=== PATIENT | female | born 1960 | race Caucasian/White ===

== ENCOUNTER 2016-12-17 17:12 | Emergency (ER) | payer OTHER ==
[~2016-12-17] VITALS: Ht 162.6 cm; Wt 74.0 kg
[~2016-12-17 17:12] MED LIST: DICL25 PO; HYDR200T42 PO; OMEP20TA PO; PRED-1 PO; VITA500S3 SL; ZOFR4TAB3 SL
[2016-12-17 17:23] VITALS: BP 138/81; PULSE 77; RESP 16; TEMP 98.2; O2SAT 99
[2016-12-17] MEDS ORDERED: SODIUM CHLOR 0.9% 1000 ML INJ 1,000 ML IV ONE (18:00)
[2016-12-17] MEDS ORDERED: ONDANSETRON HCL 4 MG/2 ML VIAL IVP ONE (18:00)
--- NOTE | 2016-12-17 18:01 | PD ---
HPI Chief Complaint: GI Complaint Time Seen by Provider: 17:44 Travel History International Travel<30 days: No Contact w/Intl Traveler<30days: No Traveled to known affect area: No History of Present Illness HPI The patient was seen and examined in the presence of the nurse. She complains of nausea vomiting and diarrhea. Duration 2 days. Severity is moderate. No alleviating factors. No rectal bleeding or melena. Not having abdominal pain now PFSH Past Medical History Arthritis: Yes (RA) Autoimmune Disease: Yes (RHEUMATOID ARTHRITIS / SJOGRENS SYNDROME) Anxiety: Yes Diminished Hearing: No GERD: Yes Immunizations Current: Yes ?: Not Menopausal: Yes Ovarian Cysts: Yes Past Surgical History Other Surgery: Yes (LEFT HAND SURGERY; LEEP; LEFT FACE) Social History Alcohol Use: No Tobacco Use: No Substance Use: No Allergies-Medications (Allergen,Severity, Reaction): Coded Allergies: Penicillin (Verified Allergy, Severe, HIVES, 12/17/16) Contrast Media (Verified Allergy, Intermediate, Hives, 12/17/16) Peanut Allergy (Verified Allergy, Unknown, Anaphylaxis, 12/17/16) Reported Meds & Prescriptions Reported Meds & Active Scripts Active Zofran (Ondansetron HCl) 4 Mg Tab 4 Mg PO Q6HR PRN Reported Xanax (Alprazolam) 0.25 Mg Tab 0.25 Mg PO Q4H PRN Tretinoin Topical (Tretinoin) 0.025 % Cream 1 Applic TOPICAL HS Hydroxychloroquine (Hydroxychloroquine Sulfate) 200 Mg Tab 200 Mg PO BID Takw with food Vitamin D3 Ultra Strength (Cholecalciferol) 5,000 Unit Cap 5,000 Units PO DAILY Omeprazole 20 Mg Tab 20 Mg PO DAILY Prednisone 5 Mg Tab 5 Mg PO DAILY Review of Systems General / Constitutional: No: Fever Eyes: No: Visual changes HENT: No: Headaches Cardiovascular: No: Chest Pain or Discomfort Respiratory: No: Shortness of Breath Gastrointestinal: Positive: Nausea, Vomiting, Diarrhea, No: Abdominal Pain Genitourinary: No: Dysuria Musculoskeletal: No: Pain Skin: No Rash Neurologic: No: Weakness Psychiatric: No: Depression Endocrine: No: Polydipsia Hematologic/Lymphatic: No: Easy Bruising Physical Exam Narrative GENERAL: Well-nourished, well-developed patient in no apparent distress. SKIN: Warm and dry. HEAD: Atraumatic. Normocephalic. EYES: Pupils equal and round. No scleral icterus. No injection or drainage. ENT: No nasal bleeding or discharge. Mucous membranes pink and moist. NECK: Trachea midline. No JVD. CARDIOVASCULAR: Regular rate and rhythm. No murmur appreciated. RESPIRATORY: No accessory muscle use. Clear to auscultation. Breath sounds equal bilaterally. GASTROINTESTINAL: Abdomen soft, non-tender, nondistended. Hepatic and splenic margins not palpable. MUSCULOSKELETAL: No obvious deformities. No clubbing. No cyanosis. No edema. NEUROLOGICAL: Awake and alert. No obvious cranial nerve deficits. Motor grossly within normal limits. Normal speech. PSYCHIATRIC: Appropriate mood and affect; insight and judgment normal. Data Data Last Documented VS Vital Signs Date Time Temp Pulse Resp B/P Pulse Ox O2 Delivery O2 Flow Rate FiO2 12/17/16 17:23 98.2 77 16 138/81 99 Orders Iv Access Insert/Monitor (12/17/16 17:52) Ondansetron Inj (Zofran Inj) (12/17/16 18:00) Sodium Chlor 0.9% 1000 Ml Inj (Ns 1000 M (12/17/16 18:00) Complete Blood Count With Diff (12/17/16 17:52) Basic Metabolic Panel (Bmp) (12/17/16 17:52) Labs Laboratory Tests Test 12/17/16 17:41 White Blood Count 5.5 TH/MM3 Red Blood Count 4.50 MIL/MM3 Hemoglobin 13.9 GM/DL Hematocrit 40.2 % Mean Corpuscular Volume 89.3 FL Mean Corpuscular Hemoglobin 30.9 PG Mean Corpuscular Hemoglobin 34.6 % Concent Red Cell Distribution Width 12.5 % Platelet Count 226 TH/MM3 Mean Platelet Volume 8.9 FL Neutrophils (%) (Auto) 64.5 % Lymphocytes (%) (Auto) 23.2 % Monocytes (%) (Auto) 10.1 % Eosinophils (%) (Auto) 1.3 % Basophils (%) (Auto) 0.9 % Neutrophils # (Auto) 3.5 TH/MM3 Lymphocytes # (Auto) 1.3 TH/MM3 Monocytes # (Auto) 0.6 TH/MM3 Eosinophils # (Auto) 0.1 TH/MM3 Basophils # (Auto) 0.0 TH/MM3 CBC Comment DIFF FINAL Differential Comment Sodium Level 139 MEQ/L Potassium Level 3.6 MEQ/L Chloride Level 104 MEQ/L Carbon Dioxide Level 29.0 MEQ/L Anion Gap 6 MEQ/L Blood Urea Nitrogen 15 MG/DL Creatinine 0.82 MG/DL Estimat Glomerular Filtration 72 ML/MIN Rate Random Glucose 106 MG/DL Calcium Level 8.2 MG/DL [facility] Medical Decision Making Medical Screen Exam Complete: Yes Emergency Medical Condition: Yes Medical Record Reviewed: Yes Differential Diagnosis Gastroenteritis , food poisoning, colitis Narrative Course I have reviewed the patient's electronic medical record. Has multiple oncology visits for lymphadenitis IV placed I gave her IV Zofran 1 L normal saline IV bolus CBC is normal Metabolic profile is normal Likely has viral gastroenteritis. Zofran prescribed. She is euvolemic Diagnosis Primary Impression: Viral gastroenteritis Additional Instructions: The patient was advised to follow up with their physician and return if they worsen. I have recommended clear liquids for 24 hours, then gradually advance as tolerated. Med/Other Pt SpecificInfo: Prescription(s) given Scripts Ondansetron (Zofran)4 Mg Tab4 Mg PO Q6HR PRN (NAUSEA OR VOMITING) #12 TAB Ref 0 Prov:Gennaro Yoon MD 12/17/16 Disposition: DISCHARGE HOME Condition: Stable Gennaro Yoon MD Dec 17, 2016 18:01
[2016-12-17 18:06] LABS: AUTOMATED NEUTROPHIL # 3.5 TH/MM3 (1.8-7.7); BASOPHIL % 0.9 % (0.0-2.0); EOSINOPHIL # 0.1 TH/MM3 (0-0.4); EOSINOPHIL % 1.3 % (0.0-4.0); HEMATOCRIT 40.2 % (35.0-46.0); HEMO FLAGS DIFF FINAL; LYMPH % 23.2 % (9.0-44.0); LYMPHOCYTE # 1.3 TH/MM3 (1.0-4.8); MEAN CELL VOLUME 89.3 FL (80.0-100.0); MEAN CORPUSCULAR HEMOGLOBIN 30.9 PG (27.0-34.0); MEAN CORPUSCULAR HGB CONC 34.6 % (32.0-36.0); MONO % 10.1 % (0.0-8.0); NEUT % 64.5 % (16.0-70.0); PLATELET COUNT 226 TH/MM3 (150-450); RED CELL DISTRIBUTION WIDTH 12.5 % (11.6-17.2); WHITE BLOOD COUNT 5.5 TH/MM3 (4.0-11.0)
[2016-12-17 18:14] LABS: POTASSIUM 3.6 MEQ/L (3.5-5.1)
[2016-12-17] MEDS ORDERED: TRET0.02 TOPICAL (18:55)
[2016-12-17] MEDS ORDERED: HYDR200T3 PO (18:55)
[2016-12-17] MEDS ORDERED: CHOL1CAP61 PO (18:55)
[2016-12-17] MEDS ORDERED: PRED5TAB PO (18:55)
[2016-12-17] MEDS ORDERED: OMEP20TA PO (18:55)
[2016-12-17] MEDS ORDERED: ALPR.25 PO (18:55)
[2016-12-17] MEDS ORDERED: ZOFR4TAB PO (18:57)
[2016-12-17 19:10] VITALS: BP 115/61; PULSE 65; RESP 18; TEMP 97.8; O2SAT 100
== END 2016-12-17 19:30 | disposition home or self-care (01) ==
LOC: PHED 17:12
DX: A08.4 Viral intestinal infection, unspecified (principal); M35.00 Sjogren syndrome, unspecified; M06.9 Rheumatoid arthritis, unspecified
CPT/HCPCS: 80048; 85025; 96361; 96374; 99284; J2405; J7030

== ENCOUNTER 2017-04-07 16:00 | Observation (INO) | payer OTHER ==
[~2017-04-07] VITALS: Ht 162.6 cm; Wt 75.0 kg
[~2017-04-07 16:00] MED LIST changes: +ALPR.25 PO; +CHOL1CAP61 PO; -DICL25 PO; +HYDR200T3 PO; -HYDR200T42 PO; -PRED-1 PO; +PRED5TAB PO; +TRET0.02 TOPICAL; -VITA500S3 SL; +ZOFR4TAB PO; -ZOFR4TAB3 SL
[2017-04-07 16:02] VITALS: BP 186/88; PULSE 89; RESP 18; TEMP 97.8; O2SAT 98
--- NOTE | 2017-04-07 16:18 | PD ---
Physical Exam Date Seen by Provider: Apr 07, 2017 Time Seen by Provider: 16:14 Data Data Last Documented VS Vital Signs Date Time Temp Pulse Resp B/P Pulse Ox O2 Delivery O2 Flow Rate FiO2 04/07/17 16:02 97.8 89 18 186/88 98 MDM Supervised Visit with LORA: No Narrative Course 56 YO F with complaint of 2 day history of "someone on top of my chest." Constant. Worsened by lying down. + diaphoreses, SOB, lightheadedness. --N/V. Stress test last week "not normal" at Dr. Martinez's office. Vitals reviewed. Patient seen in triage, awaiting bed placement. Trudy Rojas Apr 07, 2017 16:18
[2017-04-07] MEDS ORDERED: SODIUM CHLORIDE 0.9% FLUSH 10 ML FLUSH IVF PRN (17:45)
--- NOTE | 2017-04-07 17:59 | RADRPT ---
EXAM DATE/TIME: 04/07/2017 17:41 [facility] COMPARISON: CHEST SINGLE AP, August 22, 2015, 18:35. INDICATIONS : Chest pain. MEDICAL HISTORY : Rheumatoid arthritis. SURGICAL HISTORY : None. ENCOUNTER: Initial ACUITY: 1 day PAIN SCORE: 4/10 LOCATION: Bilateral chest FINDINGS: A single view of the chest demonstrates the lungs to be symmetrically aerated without evidence of mas s, infiltrate or effusion. The cardiomediastinal contours are unremarkable. Osseous structures are intact. CONCLUSION: Normal examination. Dayton Barboza MD on April 07, 2017 at 17:56 Board Certified Radiologist. This report was verified electronically.
[2017-04-07 18:35] LABS: AUTOMATED NEUTROPHIL # 3.8 TH/MM3 (1.8-7.7); BASOPHIL # 0.1 TH/MM3 (0-0.2); BASOPHIL % 1.2 % (0.0-2.0); EOSINOPHIL # 0.1 TH/MM3 (0-0.4); EOSINOPHIL % 1.7 % (0.0-4.0); HEMATOCRIT 40.1 % (35.0-46.0); HEMO FLAGS DIFF FINAL; LYMPH % 27.7 % (9.0-44.0); LYMPHOCYTE # 1.8 TH/MM3 (1.0-4.8); MEAN CELL VOLUME 91.1 FL (80.0-100.0); MEAN CORPUSCULAR HEMOGLOBIN 29.8 PG (27.0-34.0); MEAN CORPUSCULAR HGB CONC 32.7 % (32.0-36.0); NEUT % 59.4 % (16.0-70.0); PLATELET COUNT 229 TH/MM3 (150-450); RED CELL DISTRIBUTION WIDTH 13.2 % (11.6-17.2); WHITE BLOOD COUNT 6.4 TH/MM3 (4.0-11.0)
--- NOTE | 2017-04-07 18:39 | PD ---
HPI Chief Complaint: Chest Pain Time Seen by Provider: 18:39 Travel History International Travel<30 days: No Contact w/Intl Traveler<30days: No Traveled to known affect area: No History of Present Illness HPI 56-year-old female with a history of rheumatoid arthritis and Sjogren syndrome presents to the emergency department for evaluation of 2 day history of midsternal chest pressure. Patient states that the chest pressure has been constant. States that she's had associated shortness of breath, lightheadedness , nausea, indigestion, diaphoresis. States that the shortness of breath is aggravated with exertion. She denies any fever, chills, vomiting, diarrhea, constipation, abdominal pain, swelling of the extremities, cough or cold symptoms. She denies any history of heart disease or NV. States that she has a positive family history of heart disease. Denies any history of high blood pressure, high cholesterol or diabetes. Denies smoking history. States that she had a screening test done on her carotids about a month ago which showed she had mild plaque formation and she was referred to a deputy county counsel. States she made an appointment with Dr. Martinez who did a treadmill stress test last week which was abnormal. States that she was scheduled for a nuclear stress test next week. PCP is Dr. Duff. No other complaints. PFSH Past Medical History Arthritis: Yes (RA) Autoimmune Disease: Yes (RHEUMATOID ARTHRITIS / SJOGRENS SYNDROME) Anxiety: Yes Diminished Hearing: No GERD: Yes Immunizations Current: Yes Menopausal: Yes Ovarian Cysts: Yes Past Surgical History Other Surgery: Yes (LEFT HAND SURGERY; LEEP; LEFT FACE) Social History Alcohol Use: No Tobacco Use: No Substance Use: No Allergies-Medications (Allergen,Severity, Reaction): Coded Allergies: Penicillin (Verified Allergy, Severe, HIVES, 04/07/17) Contrast Media (Verified Allergy, Intermediate, Hives, 04/07/17) Peanut Allergy (Verified Allergy, Unknown, Anaphylaxis, 04/07/17) Reported Meds & Prescriptions Reported Meds & Active Scripts Active Zofran (Ondansetron HCl) 4 Mg Tab 4 Mg PO Q6HR PRN Reported Xanax (Alprazolam) 0.25 Mg Tab 0.25 Mg PO Q4H PRN Tretinoin Topical (Tretinoin) 0.025 % Cream 1 Applic TOPICAL HS Hydroxychloroquine (Hydroxychloroquine Sulfate) 200 Mg Tab 200 Mg PO BID Takw with food Vitamin D3 Ultra Strength (Cholecalciferol) 5,000 Unit Cap 5,000 Units PO DAILY Omeprazole 20 Mg Tab 20 Mg PO BID Prednisone 5 Mg Tab 5 Mg PO DAILY Review of Systems Except as stated in HPI: all other systems reviewed are Neg Physical Exam Narrative GENERAL: Well-nourished and well-developed pleasant female patient in no acute distress who is nontoxic appearing. SKIN: Warm and dry. HEAD: Normocephalic and atraumatic. EYES: No injection, drainage, or hyphema noted. PERRLA. EOMI. ENT: No nasal drainage noted. Oropharynx is clear. NECK: Supple and the trachea is midline. CARDIOVASCULAR: Regular rate and rhythm. RESPIRATORY: Breath sounds are equal bilaterally with no accessory muscle use, wheezing, rhonchi, or crackles. GASTROINTESTINAL: Abdomen is soft, non-tender, and nondistended. MUSCULOSKELETAL: No obvious deformities, swelling, cyanosis, or ecchymosis is present throughout the upper and lower extremities. Patient has full range of motion without any signs of neurovascular compromise. NEUROLOGICAL: Awake, alert, and oriented. Normal speech and gait. Cranial nerves are grossly intact. Data Data Last Documented VS Vital Signs Date Time Temp Pulse Resp B/P Pulse Ox O2 Delivery O2 Flow Rate FiO2 04/07/17 19:13 74 18 148/73 98 Room Air 04/07/17 16:02 97.8 Orders Electrocardiogram (04/07/17 17:40) Ckmb (Isoenzyme) Profile (04/07/17 17:40) Complete Blood Count With Diff (04/07/17 17:40) Comprehensive Metabolic Panel (04/07/17 17:40) Magnesium (Mg) (04/07/17 17:40) Prothrombin Time / Inr (Pt) (04/07/17 17:40) Act Partial Throm Time (Ptt) (04/07/17 17:40) Troponin I (04/07/17 17:40) Chest, Single Ap (04/07/17 17:40) Ecg Monitoring (04/07/17 17:40) Bilateral Bp Monitoring (04/07/17 17:40) Iv Access Insert/Monitor (04/07/17 17:40) Oximetry (04/07/17 17:40) Sodium Chloride 0.9% Flush (Ns Flush) (04/07/17 17:45) Aspirin Chew (Aspirin Chew) (04/07/17 18:45) Nitroglycerin Sl (Nitrostat Sl) (04/07/17 18:45) CKMB (04/07/17 18:05) CKMB% (04/07/17 18:05) Admit Order (Ed Use Only) (04/07/17 19:19) Activity Bed Rest With Brp (04/07/17 19:19) Vital Signs (Adult) Q4H (04/07/17 19:19) Cardiac Rhythm .As Directed (04/07/17 19:19) Notify Dr: Other .PRN (04/07/17 19:19) Notify Dr. Parameters (04/07/17 19:19) Resp Oxygen Nasal Cannula (04/07/17 ) Diet Npo (04/08/17 Breakfast) Ckmb (Isoenzyme) Profile (04/07/17 21:05) Ckmb (Isoenzyme) Profile (04/08/17 00:05) Troponin I (04/07/17 21:05) Troponin I (04/08/17 00:05) Electrocardiogram (04/07/17 19:19) Electrocardiogram (04/07/17 22:19) ^ Obtain (04/07/17 19:19) Sodium Chlor 0.9% 1000 Ml Inj (Ns 1000 M (04/07/17 19:19) Sodium Chloride 0.9% Flush (Ns Flush) (04/07/17 19:30) Sodium Chloride 0.9% Flush (Ns Flush) (04/07/17 21:00) Acetaminophen (Tylenol) (04/07/17 19:30) Ondansetron Inj (Zofran Inj) (04/07/17 19:30) [facility] / Telemetry MARINE.Q8H (04/07/17 19:19) Labs Laboratory Tests Test 04/07/17 18:05 White Blood Count 6.4 TH/MM3 Red Blood Count 4.40 MIL/MM3 Hemoglobin 13.1 GM/DL Hematocrit 40.1 % Mean Corpuscular Volume 91.1 FL Mean Corpuscular Hemoglobin 29.8 PG Mean Corpuscular Hemoglobin 32.7 % Concent Red Cell Distribution Width 13.2 % Platelet Count 229 TH/MM3 Mean Platelet Volume 8.9 FL Neutrophils (%) (Auto) 59.4 % Lymphocytes (%) (Auto) 27.7 % Monocytes (%) (Auto) 10.0 % Eosinophils (%) (Auto) 1.7 % Basophils (%) (Auto) 1.2 % Neutrophils # (Auto) 3.8 TH/MM3 Lymphocytes # (Auto) 1.8 TH/MM3 Monocytes # (Auto) 0.6 TH/MM3 Eosinophils # (Auto) 0.1 TH/MM3 Basophils # (Auto) 0.1 TH/MM3 CBC Comment DIFF FINAL Differential Comment Prothrombin Time 10.4 SEC Prothromb Time International 0.9 RATIO Ratio Activated Partial 25.7 SEC Thromboplast Time Sodium Level 140 MEQ/L Potassium Level 4.0 MEQ/L Chloride Level 105 MEQ/L Carbon Dioxide Level 30.0 MEQ/L Anion Gap 5 MEQ/L Blood Urea Nitrogen 14 MG/DL Creatinine 0.91 MG/DL Estimat Glomerular Filtration 64 ML/MIN Rate Random Glucose 77 MG/DL Calcium Level 8.6 MG/DL Magnesium Level 2.1 MG/DL Total Bilirubin 0.4 MG/DL Aspartate Amino Transf 19 U/L (AST/SGOT) Alanine Aminotransferase 27 U/L (ALT/SGPT) Alkaline Phosphatase 57 U/L Total Creatine Kinase 107 U/L Creatine Kinase MB 2.6 NG/ML Troponin I LESS THAN 0.02 NG/ML Total Protein 7.7 GM/DL Albumin 4.0 GM/DL [facility] Medical Decision Making Medical Screen Exam Complete: Yes Emergency Medical Condition: Yes Differential Diagnosis ACS versus chest wall pain versus pleurisy versus anxiety Narrative Course 56-year-old female presents to the emergency department for evaluation of chest pain with shortness of breath. Patient is afebrile, vital signs are stable. Physical examination is unremarkable. EKG shows sinus rhythm with no acute ST elevations or depressions. IV access is obtained, labs have been drawn and sent. Patient is placed on cardiac telemetry and pulse oximetry monitoring. Patient is administered aspirin 324 mg orally and nitroglycerin sublingual tablets. CBC is unremarkable. CMP is unremarkable. Cardiac enzymes are negative. Coags are unremarkable. Chest x-ray is unremarkable. Patient has arranged stable and without complaint while here in the emergency department. She'll be admitted to chest pain center for repeat cardiac enzymes , EKGs and possible stress testing. Patient and family verbalized understanding and are in agreement with treatment plan. I discussed the case with my attending physician Dr. Jenkins who is aware of the patients history, physical examination findings, and treatment plan. Diagnosis Primary Impression: Chest pain Qualified Code: R07.9 - Chest pain, unspecified type Admitting Information Admitting Physician Requests: Observation Vanesa Dumont Apr 07, 2017 18:39
[2017-04-07 18:40] VITALS: BP 165/90; PULSE 69; PULSE 70; RESP 15; O2SAT 98; O2SAT 99
[2017-04-07] MEDS: NITROGLYCERIN 0.4 MG SL 25 TABS/BTL SL SCH ×3 (18:45→18:55)
[2017-04-07] MEDS ORDERED: ASPIRIN 81 MG CHEW TAB PO ONE (18:45)
[2017-04-07 18:49] LABS: APTT (PATIENT) 25.7 SEC (24.3-30.1); INTERNATIONAL NORMALIZED RATIO 0.9 RATIO; PROTHROMBIN TIME - PATIENT 10.4 SEC (9.8-11.6)
[2017-04-07 18:54] LABS: ANION GAP 5 MEQ/L (5-15); AST (GOT) 19 U/L (15-37); BLOOD UREA NITROGEN 14 MG/DL (7-18); CHLORIDE 105 MEQ/L (98-107); GLOMERULAR FILTRATION RATE 64 ML/MIN (>89); MAGNESIUM 2.1 MG/DL (1.5-2.5); SODIUM (NA) 140 MEQ/L (136-145)
[2017-04-07 18:57] LABS: ALKALINE PHOSPHATASE 57 U/L (45-117); ALT (GPT) 27 U/L (10-53); CREATINE KINASE 107 U/L (26-192); TOTAL BILIRUBIN ADULT 0.4 MG/DL (0.2-1.0)
[2017-04-07 19:10] LABS: CKMB 2.6 NG/ML (0.5-3.6)
[2017-04-07 19:13] VITALS: BP 148/73; PULSE 74; RESP 18; O2SAT 98
[2017-04-07] MEDS ORDERED: ONDANSETRON HCL 4 MG/2 ML VIAL IV PRN (19:30)
[2017-04-07] MEDS ORDERED: SODIUM CHLORIDE 0.9% FLUSH 10 ML FLUSH IV FLUSH PRN (19:30)
[2017-04-07] MEDS ORDERED: ACETAMINOPHEN 500 MG CPLT PO PRN (19:30)
[2017-04-07] MEDS: SODIUM CHLOR 0.9% 1000 ML INJ 1,000 ML IV SCH (19:39)
[2017-04-07] MEDS: SODIUM CHLORIDE 0.9% FLUSH 10 ML FLUSH IV FLUSH SCH (19:40)
[2017-04-07 21:24] VITALS: BP 143/84; PULSE 74; RESP 18; O2SAT 96
[2017-04-07 21:40] VITALS: PULSE 74
[2017-04-07 22:14] LABS: CREATINE KINASE 98 U/L (26-192)
[2017-04-07 23:01] VITALS: PULSE 79
[2017-04-08 00:19] VITALS: BP 123/69; PULSE 73; RESP 18; TEMP 98.1; O2SAT 97
[2017-04-08 01:34] LABS: CREATINE KINASE 82 U/L (26-192)
[2017-04-08 04:00] VITALS: BP 133/67; PULSE 63; PULSE 69; RESP 21; TEMP 98.5; O2SAT 100
[2017-04-08] MEDS: SODIUM CHLOR 0.9% 1000 ML INJ 1,000 ML IV SCH ×3 (05:07→06:44)
[2017-04-08 07:40] VITALS: BP 163/72; PULSE 80; RESP 16; TEMP 96.8; O2SAT 99
[2017-04-08] MEDS ORDERED: SODIUM CHLOR 0.9% 1000 ML INJ 1,000 ML IV SCH (07:53)
[2017-04-08 08:00] VITALS: PULSE 61; PULSE 65
[2017-04-08] MEDS ORDERED: cloNIDine HCL 0.1 MG TAB PO PRN (08:00)
[2017-04-08 08:04] VITALS: O2SAT 99
[2017-04-08] MEDS ORDERED: methylPREDNISolone SOD SUCC 125 MG/2 ML VIAL IV PUSH ONE (08:15)
[2017-04-08] MEDS ORDERED: FAMOTIDINE 20 MG/2 ML VIAL IV PUSH ONE (08:15)
[2017-04-08] MEDS ORDERED: ALPRAZolam 0.25 MG TAB PO PRN (08:45)
--- NOTE | 2017-04-08 08:55 | PD.CONS ---
[facility] By Dr. Bueno Reason for Consult Medical management Primary Care Physician Herminio Duff Diagnoses: History of Present Illness This a 56-year-old female with history of rheumatoid arthritis, GERD and anxiety. Patient presented to the emergency room for evaluation of chest discomfort. Patient states that approximately 2 days ago she developed midsternal chest pressure, has been constant and associated with shortness of breath and diaphoresis, no other symptoms. Patient states that she had a life scan on an outpatient basis that show she had some possible plaque buildup in her carotid arteries. Her primary care physician advised her to follow-up with cleaning manager. She saw Dr. Martinez about a week and a half ago. She had a stress test. The stress test was apparently abnormal however she was not having chest discomfort at that time. She was scheduled to have an outpatient nuclear STT however because of the chest pressure 2 days ago she decided to come to the hospital for further evaluation. Initially she was admitted to the chest pain center however because of the continued chest discomfort and the possibility of needing cardiac catheter, Dr. dillon was consulted. At this time, patient is nothing by mouth and will be undergoing cardiac catheterization this afternoon. Chest discomfort is still present but not as bad. She denies any shortness of breath, no nausea, no vomiting, no diaphoresis. No recent fever, no chills. Laboratory workup is unremarkable. EKG does not reveal any acute ST segment elevation. She does have some chronic joint pain to her hands and her back from rheumatoid arthritis. Patient is admitted for further evaluation and treatment. Review of Systems Constitutional: DENIES: Diaphoretic episodes, Fatigue, Fever, Weight gain, Weight loss, Chills, Dizziness, Change in appetite, Night Sweats Endocrine: DENIES: Abnorml menstrual pattern, Heat/cold intolerance, Polydipsia , Polyuria, Polyphagia Eyes: DENIES: Blurred vision, Diplopia, Eye inflammation, Eye pain, Vision loss , Photosensitivity, Double Vision Ears, nose, mouth, throat: DENIES: Tinnitus, Hearing loss, Vertigo, Nasal discharge, Oral lesions, Throat pain, Hoarseness, Ear Pain, Running Nose, Epistaxis, Sinus Pain, Toothache, Odynophagia Respiratory: COMPLAINS OF: Shortness of breath, DENIES: Apneas, Cough, Snoring , Wheezing, Hemoptysis, Sputum production Cardiovascular: COMPLAINS OF: Chest pain, DENIES: Palpitations, Syncope, Dyspnea on Exertion, PND, Lower Extremity Edema, Orthopnea, Claudication Gastrointestinal: DENIES: Abdominal pain, Black stools, Bloody stools, Constipation, Diarrhea, Nausea, Vomiting, Difficulty Swallowing, Anorexia Genitourinary: DENIES: Abnormal vaginal bleeding, Dysmenorrhea, Dyspareunia, Sexual dysfunction, Urinary frequency, Urinary incontinence, Urgency, Hematuria , Dysuria, Nocturia, Vaginal discharge Musculoskeletal: COMPLAINS OF: Joint pain, Back pain, DENIES: Muscle aches, Stiffness, Joint Swelling, Neck pain Integumentary: DENIES: Abnormal pigmentation, Pruritus, Rash, Nail changes, Breast masses, Breast skin changes, Nipple discharge Hematologic/lymphatic: DENIES: Bruising, Lymphadenopathy Immunologic/allergic: DENIES: Eczema, Urticaria Neurologic: DENIES: Abnormal gait, Headache, Localized weakness, Paresthesias, Seizures, Speech Problems, Tremor, Poor Balance Psychiatric: DENIES: Anxiety, Confusion, Mood changes, Depression, Hallucinations, Agitation, Suicidal Ideation, Homicidal Ideation, Delusions Past Family Social History Past Medical History Rheumatoid arthritis. Denies hypertension, hyperlipidemia, diabetes, and known CAD. Was told she had some plaque in carotids, had recent life scan GERD Ovarian cyst Anxiety Past Surgical History Left hand surgery LEEP procedure Left vein surgery [address] Buchanan Reported Medications Reported Meds & Active Scripts Active Reported Xanax (Alprazolam) 0.25 Mg Tab 0.25 Mg PO Q4H PRN Tretinoin Topical (Tretinoin) 0.025 % Cream 1 Applic TOPICAL HS Hydroxychloroquine (Hydroxychloroquine Sulfate) 200 Mg Tab 200 Mg PO BID Takw with food Vitamin D3 Ultra Strength (Cholecalciferol) 5,000 Unit Cap 5,000 Units PO DAILY Omeprazole 20 Mg Tab 20 Mg PO BID Prednisone 5 Mg Tab 5 Mg PO DAILY Allergies: Coded Allergies: Penicillin (Verified Allergy, Severe, HIVES, 04/07/17) Contrast Media (Verified Allergy, Intermediate, Hives, 04/07/17) Peanut Allergy (Verified Allergy, Unknown, Anaphylaxis, 04/07/17) Active Ordered Medications Inpatient Medications Acetaminophen (Tylenol) 500 mg Q4H PRN PO HEADACHE Last administered on t 19:40; Start 04/07/17 at 19:30 Alprazolam (Xanax) 0.25 mg Q4H PRN PO ANXIETY; Start 04/08/17 at 08:45 Aspirin (Aspirin Chew) 324 mg ONCE ONCE PO Last administered on 04/07/17 18: 47; Start 04/07/17 at 18:45; Stop 04/07/17 at 18:46; Status DC Aspirin (Aspirin) 325 mg DAILY PO Last administered on 04/08/17 09:02; Start 04/08/17 at 09:00 Clonidine 0.1 mg 0.1 mg Q4H PRN PO SYS BP GREATER THAN 160 MMHG; Start at 08:00 Famotidine (Pepcid Inj) 20 mg NOW ONCE IV PUSH Last administered on 04/08/17 10:04; Start 04/08/17 at 08:15; Stop 04/08/17 at 08:16; Status DC Methylprednisolone Sodium Succinate (SoluMEDROL INJ) 125 mg NOW ONCE IV PUSH Last administered on 04/08/17 09:02; Start 04/08/17 at 08:15; Stop 04/08/17 at 08:16; Status DC Metoprolol Tartrate (Lopressor) 25 mg Q12HR PO Last administered on 04/08/17 09:02; Start 04/08/17 at 09:00 Nitroglycerin (Nitrostat Sl) 0.4 mg Q5M SL ; Start 04/07/17 at 18:45; Stop 04/07 at 18:56; Status DC Ondansetron HCl (Zofran Inj) 4 mg Q6H PRN IV NAUSEA; Start 04/07/17 at 19:30 Pantoprazole Sodium (Protonix) 20 mg BID PO Last administered on 04/08/17 09: 02; Start 04/08/17 at 09:00 Sodium Chloride (NS 1000 ml Inj) 1,000 ml @ 100 mls/hr Q10H IV ; Start at 07:53; Stop 04/08/17 at 08:11; Status DC Sodium Chloride (NS Flush) 2 ml BID IV FLUSH Last administered on 04/07/17 19: 40; Start 04/07/17 at 21:00 Family History Her mother had CAD and a sister had a CVA. Social History Patient is a lifetime nonsmoker. Denies alcohol or illicit drugs. She is disabled secondary to rheumatoid arthritis. Social History Patient is a lifetime nonsmoker. Denies alcohol or illicit drugs. She is disabled secondary to rheumatoid arthritis. Lives with , has 1 grown child. Physical Exam Vital Signs Vital Signs Date Time Temp Pulse Resp B/P Pulse Ox O2 Delivery O2 Flow Rate FiO2 04/08/17 08:04 99 21 04/08/17 07:40 96.8 80 16 163/72 99 04/08/17 06:44 21 04/08/17 04:00 63 04/08/17 04:00 98.5 69 21 133/67 100 04/08/17 04:00 63 04/08/17 00:19 98.1 73 18 123/69 97 04/07/17 23:01 79 04/07/17 21:40 74 04/07/17 21:40 74 04/07/17 21:24 74 18 143/84 96 04/07/17 19:13 74 18 148/73 98 Room Air 04/07/17 18:40 70 15 165/90 99 Room Air 04/07/17 18:40 69 15 165/90 98 Room Air 04/07/17 18:40 71 15 98 Room Air 04/07/17 16:02 97.8 89 18 186/88 98 Physical Exam GENERAL: This is a well-nourished, well-developed patient, in no apparent distress. SKIN: No rashes, ecchymoses or lesions. Cool and dry. HEAD: Atraumatic. Normocephalic. No temporal or scalp tenderness. EYES: Pupils equal round and reactive. Extraocular motions intact. No scleral icterus. No injection or drainage. ENT: Nose without bleeding, purulent drainage or septal hematoma. Throat without erythema, tonsillar hypertrophy or exudate. Uvula midline. Airway patent. NECK: Trachea midline. No JVD or lymphadenopathy. Supple, nontender, no meningeal signs. CARDIOVASCULAR: Regular rate and rhythm without murmurs, gallops, or rubs. RESPIRATORY: Clear to auscultation. Breath sounds equal bilaterally. No wheezes , rales, or rhonchi. GASTROINTESTINAL: Abdomen soft, non-tender, nondistended. No hepato-splenomegaly , or palpable masses. No guarding. MUSCULOSKELETAL: Extremities without clubbing, cyanosis, or edema. No joint tenderness, effusion, or edema noted. No calf tenderness. Negative Homans sign bilaterally. NEUROLOGICAL: Awake and alert. Cranial nerves II through XII intact. Motor and sensory grossly within normal limits. Five out of 5 muscle strength in all muscle groups. Normal speech. Laboratory Laboratory Tests Test 04/07/17 04/07/17 04/08/17 18:05 21:00 00:30 White Blood Count 6.4 Red Blood Count 4.40 Hemoglobin 13.1 Hematocrit 40.1 Mean Corpuscular Volume 91.1 Mean Corpuscular Hemoglobin 29.8 Mean Corpuscular Hemoglobin 32.7 Concent Red Cell Distribution Width 13.2 Platelet Count 229 Mean Platelet Volume 8.9 Neutrophils (%) (Auto) 59.4 Lymphocytes (%) (Auto) 27.7 Monocytes (%) (Auto) 10.0 Eosinophils (%) (Auto) 1.7 Basophils (%) (Auto) 1.2 Neutrophils # (Auto) 3.8 Lymphocytes # (Auto) 1.8 Monocytes # (Auto) 0.6 Eosinophils # (Auto) 0.1 Basophils # (Auto) 0.1 CBC Comment DIFF FINAL Differential Comment Prothrombin Time 10.4 Prothromb Time International 0.9 Ratio Activated Partial 25.7 Thromboplast Time Sodium Level 140 Potassium Level 4.0 Chloride Level 105 Carbon Dioxide Level 30.0 Anion Gap 5 Blood Urea Nitrogen 14 Creatinine 0.91 Estimat Glomerular Filtration 64 Rate Random Glucose 77 Calcium Level 8.6 Magnesium Level 2.1 Total Bilirubin 0.4 Aspartate Amino Transf 19 (AST/SGOT) Alanine Aminotransferase 27 (ALT/SGPT) Alkaline Phosphatase 57 Total Creatine Kinase 107 98 82 Creatine Kinase MB 2.6 Troponin I LESS THAN 0.02 LESS THAN 0.02 LESS THAN 0.02 Total Protein 7.7 Albumin 4.0 Result Diagram: 04/07/17180404/07/17 180 Imaging Last Impressions Chest X-Ray 04/07/17 1740 Signed Impressions: Service Date/Time: Friday, April 07, 2017 17:41 - CONCLUSION: Normal examination. Dayton Barboza MD A/P Diagnosis: (1) Chest pain (2) Rheumatoid arthritis (3) Anxiety Assessment and Plan Admitted to Dr. Lozano 56-year-old female with history of chest pressure associated with shortness of breath, diaphoresis. Cardiac enzymes negative. Had recent abnormal stress test -Appreciate Dr. dillon's input, patient will be undergoing cardiac catheterization this afternoon. We will follow up on results Continue with aspirin Continue with beta blockers -Lipid profile in the morning Rheumatoid arthritis, stable Continue Plaquenil and steroids Anxiety Continue with Xanax when necessary Home medications reviewed, initiated as indicated SCDs for DVT prophylaxis Plan of care has been discussed with the patient, attending and registered nurse. Further management of the patient will be dependent on the hospital course This patient was seen by myself and Dr. Lozano, this H&P is written on his behalf Problem Qualifiers (1) Chest pain: Qualified Code: R07.9 - Chest pain, unspecified type (2) Rheumatoid arthritis: Qualified Code: M06.9 - Rheumatoid arthritis involving both hands, unspecified rheumatoid factor presence Colleen Lawton Apr 08, 2017 08:55
[2017-04-08] MEDS: SODIUM CHLORIDE 0.9% FLUSH 10 ML FLUSH IV FLUSH SCH (09:00)
[2017-04-08] MEDS ORDERED: METOPROLOL TARTRATE 25 MG TAB PO SCH (09:00)
[2017-04-08] MEDS ORDERED: ASPIRIN 325 MG TAB PO SCH (09:00)
[2017-04-08] MEDS ORDERED: PANTOPRAZOLE SOD 20 MG DELAYED RELEASE TAB PO SCH (09:00)
--- NOTE | 2017-04-08 09:19 | HHI.HP ---
[facility] Primary Care Physician Herminio Duff Chief Complaint Chest pain History of Present Illness This is a 56-year-old female that presents to the ED to evaluate chest discomfort. Patient states that she had had a scan on an outpatient basis that showed she had some possible plaque buildup in her carotid arteries. Her physician advised her to follow-up with a intelligence group supervisor. She saw Dr. Martinez about a week and a half ago. She had a stress test. The stress test was apparently abnormal however she was not having chest discomfort at that time. She states that 2 days ago she began having chest discomfort that has not gone away. She describes as a pressure. She gets short of breath and at times diaphoretic. She also states she's been very fatigued since this began. She found nothing to worsen or improve the symptoms while she is having. Denies prior history of CAD. The nurse from Dr. Martinez's office called and reports that she had ST depressions during the stress test. Initial plan was to schedule her for a outpatient nuclear stress test however the concern is with the chest discomfort that she should probably have a heart catheterization. I spoke with Dr. hagan and he wants her to be set up for a cardiac catheterization this afternoon. Patient states she started discomfort in her chest but is no hernia as bad. She is not nauseous, short of breath, or diaphoretic. Review of Systems General: Patient denies fevers, chills recent, and recent travel HEENT: Patient denies headache, sore throat, difficulty swallowing. Cardiovascular: Has the chest discomfort as mentioned above. Denies sensation of heart beating rapidly or irregularly. No syncope. She was diaphoretic. Respiratory: She was short of breath. Denies inspirational chest discomfort. Denies coughing wheezing or hemoptysis. GI: Patient denies nausea, vomiting, diarrhea, abdominal pain, bloody stools. Musculoskeletal: Patient denies joint pain or edema. Denies calf pain or edema. Neurovascular: Patient denies numbness, tingling, weakness in extremities. Denies headache. Endocrine: Denies polyuria and polydipsia. Hematologic: Denies easy bruising. Skin: Denies rash or itching. Past Family Social History Allergies: Coded Allergies: Penicillin (Verified Allergy, Severe, HIVES, 04/07/17) Contrast Media (Verified Allergy, Intermediate, Hives, 04/07/17) Peanut Allergy (Verified Allergy, Unknown, Anaphylaxis, 04/07/17) Past Medical History Rheumatoid arthritis. Denies hypertension, hyperlipidemia, diabetes, and known CAD. Past Surgical History Noncontributory. Reported Medications Reported Meds & Active Scripts Active Reported Xanax (Alprazolam) 0.25 Mg Tab 0.25 Mg PO Q4H PRN Tretinoin Topical (Tretinoin) 0.025 % Cream 1 Applic TOPICAL HS Hydroxychloroquine (Hydroxychloroquine Sulfate) 200 Mg Tab 200 Mg PO BID Takw with food Vitamin D3 Ultra Strength (Cholecalciferol) 5,000 Unit Cap 5,000 Units PO DAILY Omeprazole 20 Mg Tab 20 Mg PO BID Prednisone 5 Mg Tab 5 Mg PO DAILY Active Ordered Medications Current Medications Medications (Trade) Dose Ordered Sig/[place] Route Start Time Stop Time Status Last Admin Sodium Chloride 2 ml 2 ml UNSCH PRN IVF 04/07/17 17:45 (NS 1000 ml Inj) 1,000 ml @ 100 mls/hr Q10H IV 04/07/17 19:19 04/08/17 06:44 (NS Flush) 2 ml UNSCH PRN IV FLUSH 04/07/17 19:30 (NS Flush) 2 ml BID IV FLUSH 04/07/17 21:00 04/07/17 19:40 (Tylenol) 500 mg Q4H PRN PO 04/07/17 19:30 04/07/17 19:40 (Zofran Inj) 4 mg Q6H PRN IV 04/07/17 19:30 (Catapres) 0.1 mg Q4H PRN PO 04/08/17 08:00 (Aspirin) 325 mg DAILY PO 04/08/17 09:00 04/08/17 09:02 (Lopressor) 25 mg Q12HR PO 04/08/17 09:00 04/08/17 09:02 (Xanax) 0.25 mg Q4H PRN PO 04/08/17 08:45 (Protonix) 20 mg BID PO 04/08/17 09:00 04/08/17 09:02 Family History Her mother had CAD and a sister had a CVA. Social History Patient is a lifetime nonsmoker. Denies alcohol or illicit drugs. She is disabled secondary to rheumatoid arthritis. Physical Exam Vital Signs Vital Signs Date Time Temp Pulse Resp B/P Pulse Ox O2 Delivery O2 Flow Rate FiO2 04/08/17 08:04 99 21 04/08/17 07:40 96.8 80 16 163/72 99 04/08/17 06:44 21 04/08/17 04:00 63 04/08/17 04:00 98.5 69 21 133/67 100 04/08/17 04:00 63 04/08/17 00:19 98.1 73 18 123/69 97 04/07/17 23:01 79 04/07/17 21:40 74 04/07/17 21:40 74 04/07/17 21:24 74 18 143/84 96 04/07/17 19:13 74 18 148/73 98 Room Air 04/07/17 18:40 70 15 165/90 99 Room Air 04/07/17 18:40 69 15 165/90 98 Room Air 04/07/17 18:40 71 15 98 Room Air 04/07/17 16:02 97.8 89 18 186/88 98 Physical Exam GENERAL: This is a well-nourished, well-developed patient, in no apparent distress. Patient speaks in clear complete sentences. Patient is pleasant. HEENT: Head is atraumatic and normocephalic. Neck is supple without lymphadenopathy and trachea is midline. No JVD or carotid bruits. CARDIOVASCULAR: Grade 2 systolic murmur left sternal border. Regular rate and rhythm without gallops or rubs. RESPIRATORY: Clear to auscultation. Breath sounds equal bilaterally. No wheezes , rales, or rhonchi. Chest wall is nontender. No use of accessory muscles. GASTROINTESTINAL: Abdomen is nontender, nondistended. Abdomen soft. No obvious pulsatile mass or bruit. No CVA tenderness. Strong femoral pulses bilaterally. Normal bowel sounds in all quadrants. MUSCULOSKELETAL: Patient is moving upper and lower extremities freely. No calf tenderness or edema, no Homans sign. Strong pulses in upper and lower extremities. NEUROLOGICAL: Patient is alert and oriented. Cranial nerves 2-12 are grossly intact. No focal deficits and speech is clear. SKIN: No rash and turgor is normal. Laboratory Laboratory Tests Test 04/07/17 04/07/17 04/08/17 18:05 21:00 00:30 White Blood Count 6.4 Red Blood Count 4.40 Hemoglobin 13.1 Hematocrit 40.1 Mean Corpuscular Volume 91.1 Mean Corpuscular Hemoglobin 29.8 Mean Corpuscular Hemoglobin 32.7 Concent Red Cell Distribution Width 13.2 Platelet Count 229 Mean Platelet Volume 8.9 Neutrophils (%) (Auto) 59.4 Lymphocytes (%) (Auto) 27.7 Monocytes (%) (Auto) 10.0 Eosinophils (%) (Auto) 1.7 Basophils (%) (Auto) 1.2 Neutrophils # (Auto) 3.8 Lymphocytes # (Auto) 1.8 Monocytes # (Auto) 0.6 Eosinophils # (Auto) 0.1 Basophils # (Auto) 0.1 CBC Comment DIFF FINAL Differential Comment Prothrombin Time 10.4 Prothromb Time International 0.9 Ratio Activated Partial 25.7 Thromboplast Time Sodium Level 140 Potassium Level 4.0 Chloride Level 105 Carbon Dioxide Level 30.0 Anion Gap 5 Blood Urea Nitrogen 14 Creatinine 0.91 Estimat Glomerular Filtration 64 Rate Random Glucose 77 Calcium Level 8.6 Magnesium Level 2.1 Total Bilirubin 0.4 Aspartate Amino Transf 19 (AST/SGOT) Alanine Aminotransferase 27 (ALT/SGPT) Alkaline Phosphatase 57 Total Creatine Kinase 107 98 82 Creatine Kinase MB 2.6 Troponin I LESS THAN 0.02 LESS THAN 0.02 LESS THAN 0.02 Total Protein 7.7 Albumin 4.0 Result Diagram: 04/07/17180404/07/171804 Imaging Last 48 hours Impressions Chest X-Ray 04/07/17 1740 Signed Impressions: Service Date/Time: Friday, April 07, 2017 17:41 - CONCLUSION: Normal examination. Dayton Barboza MD Course EKGs have sinus rhythm without significant ST segment depressions or elevations. Assessment and Plan Assessment and Plan * Chest pain: Patient has had serial cardiac enzymes and EKGs for ruling out purposes. She has been seen by Dr. Abe Bueno of cardiology and the chest pain center. Dr. Bueno and myself have discussed this patient with Dr. Hagan who is covering for Dr. Martinez and he has requested the patient to been premedicated with Solu-Medrol 125 mg IV and other IV Zantac or Pepcid so that he may perform a cardiac catheterization this afternoon. These orders have been intermittent. Patient will remain nothing by mouth. Patient will be on IV fluids. Patient is stable this time. She is agreeable to this plan. Sergio Leavitt Apr 08, 2017 09:19
[2017-04-08 11:24] VITALS: BP 132/72; PULSE 66; RESP 18; TEMP 98.2; O2SAT 95
[2017-04-08] MEDS ORDERED: diphenhydrAMINE HCL 50 MG/ML VIAL ONE (16:00)
[2017-04-08] MEDS ORDERED: HEPARIN-NS/PF INJ 500 ML ONE (16:00)
--- NOTE | 2017-04-08 16:15 | EKG ---
Date Performed: 04/07/2017 Time Performed: 16:26:11 PTAGE: 56 years EKG: Sinus rhythm NORMAL ECG NO PREVIOUS TRACING DOCTOR: Abe Bueno Interpretating Date/Time 04/08/2017 16:14:37
--- NOTE | 2017-04-08 16:15 | EKG ---
Date Performed: 04/08/2017 Time Performed: 00:23:33 PTAGE: 56 years EKG: Sinus rhythm NORMAL ECG PREVIOUS TRACING : 04/07/2017 21.31 DOCTOR: Abe Bueno Interpretating Date/Time 04/08/2017 16:14:18
--- NOTE | 2017-04-08 16:15 | EKG ---
Date Performed: 04/07/2017 Time Performed: 21:31:20 PTAGE: 56 years EKG: Sinus rhythm NORMAL ECG PREVIOUS TRACING : 04/07/2017 16.26 Since previous tracing, no significant change noted DOCTOR: Abe Bueno Interpretating Date/Time 04/08/2017 16:14:28
[2017-04-08] MEDS ORDERED: MIDAZOLAM HCL 2 MG/2 ML VIAL ONE (16:32)
[2017-04-08] MEDS ORDERED: SODIUM CHLOR 0.9% 1000 ML INJ 500 ML IV SCH (16:50)
--- NOTE | 2017-04-08 16:54 | CATHPROC ---
[employer] HIS Report Study Information Study Number Admission Scheduled Start Study Start [id number] Apr 07 2017 7:22PM 04/08/2017 Apr 08 2017 3:37PM [place] Service Cardiac Catheterization Admit Source Facility Department Emergency department [facility] - Supervisor Nurse Physician and Clinical Staff Initial Nikolas Riggins Kier Drier Shazia Davis BSRN Kier Drier Drew Hunter,AILEEN Recorder Dmitriy Aguilar RT(R) Recorder Saud Jackson RCIS(BS) Scrub Joel Davidson RCIS(BS) Procedures Performed Procedure Location (Site) Vessel Name Angiogram LV LV Ventricle Coronary Angiograms LCA Left Coronary Coronary Angiograms RCA Right Coronary L Heart Cath Equipment Time Automobile Washer Steam Description Size Mfg Part Number Used/Scraped TRANSDUCER, TRPeekapakAVE [id number] 15:40 140Fire * Used W/STOCKCOCK *[id number] 534-548T *[id number] 534-520T *[id number] 534-552S *[id number] 15:40 [employer] IND[employer]RIES PACK, CCL CUSTOM * Used *[id number] 15:40 [employer] PACER PEN, SKIN DUAL W/ RULER * Used *[id number] 15:40 [employer] WIRE, 3MMJ .035 180CM 180CM Used *[id number] PROBE COVER, STERILE [id number] 15:40 startuply * Used ULTRASOUND W/ GEL *[id number] 15:40 NAMIC MANIFOLD, 4 PORT * Used *[id number] 15:40 NAMIC TUBING, HIGH PRESSURE 48" 48" Used *[id number] 15:40 [employer]COMED OMNIPAQUE, 350 MG, 150ML 150ML [id number] Used 16:37 [employer]COMED OMNIPAQUE, 350 MG, 50ML 50ML [id number] Used [id number] 15:40 [facility] BLANKET,WARM AIR CCL * Used *[id number] 15:40 [employer] MEDICAL SHEATH, FR5 TERUMO (10CM) FR 5 [id number] Used History: Current Medications Medication Dosage/Unit Route Frequency Last Date/Time Taken Beta Doron ASA History: Allergies Allergy Reaction Contrast Media Hives Peanut Allergy Anaphylaxis Penicillin HIVES History: Risk Factors Family History of Hypertension Dyslipidemia Previous MO Premature CAD No No Yes No Prior Valve Prior PCI Prior CABG Surgery No No No Cerebrovascular Peripheral Artery Chronic Lung On Dialysis Diabetes Disease Disease Disease No No No No No History: Symptoms/Diagnosis Selection Items Chest pain History: Stress Tests Stress or Imaging Studies Performed No History: Other Current Smoker No Labs Hgb (g/dl) Hct (%) WBC (l/cumm) Platelets (thousands) 11.60-17.00 35.00-51.00 4.00-11.00 150.00-450.00 13.1 40.1 6.4 229 Glucose (mg/dl) BUN (mg/dl) Creatinine (mg/dl) BUN:Creatinine (1:x) 74.00-106.00 7.00-18.00 0.50-1.30 10.00-20.00 77 14 0.9 15.6 Na (meq/l) K (meq/l) 136.00-145.00 3.50-5.10 140 4 INR (PTT:PT) 0.90-1.10 0.9 Troponin I (ng/ml) CPK-MB (ng/ML) 0.02-0.05 0.50-3.60 0.02 Not Drawn Medication Medication Total Dose (Bolus/Oral) Medication Total Dosage/Unit 1% XYLOCAINE 20 mL BENADRYL 50 mg FENTANYL 25 mcg VERSED 1 mg Medications (Bolus/Oral) Medication Time Given Dosage/Unit Administered By Reason BENADRYL 04/08/2017 4:30:14 PM 25 mg Rittenour, Shazia 25 mg BENADRYL given in lab by Shazia Davis BSRN in Left Forearm via Peripheral IV. Ordered by Nikolas Schuster. BENADRYL 04/08/2017 4:31:48 PM 25 mg Rittenour, Shazia 25 mg BENADRYL given in lab by Shazia Davis BSRN in Left Forearm via Peripheral IV. Ordered by Nikolas Schuster. FENTANYL 04/08/2017 4:32:02 PM 25 mcg Drew Hunter 25 mcg FENTANYL given in lab by Drew Hunter RN in Left Forearm via Peripheral IV. 1% XYLOCAINE 04/08/2017 4:32:27 PM 20 mL Nikolas Hagan 20 mL 1% XYLOCAINE given in lab by Nikolas Hagan in Right Groin via Subcutaneous. VERSED 04/08/2017 4:33:46 PM 1 mg Drew Hunter 1 mg VERSED given in lab by Drew Hunter, RN in Left Forearm via Peripheral IV. Medication (Drip) Medication Time Given Dosage/Unit Concentration/Unit Diluent (ml) Solution IV Solutions 04/08/2017 3:59:28 PM 0 mL (IV) 500 NaCl .9 Patient arrived on IV Solutions in Left Forearm via Peripheral IV. Pump/Drip Flow = 20 ml/hr using Na Cl .9. Ordered by Nikolas Hagan. Initial Case Assessment Cardiovascular HR Rhythm NIBP Chest Pain 75 Sinus 161/96 0 Edema Present Skin color Skin None Normal Warm Dry Circulatory - Right Pulses Dorsalis Pedis Femoral 2 2 Scale (0,1,2,3,4,d) Circulatory - Left Pulses Dorsalis Pedis Femoral 2 2 Scale (0,1,2,3,4,d) Neurological State Oriented to time-place- Alert Moves all extremities person Respiration - General Respiration Rate SpO2 (%) O2 (lpm) (B/min) 17 97 0 Final Case Assessment Cardiovascular HR Rhythm NIBP Chest Pain 78 Sinus 158/94 0 Edema Present Skin color Skin None Normal Warm Dry Circulatory - Right Pulses Dorsalis Pedis Femoral 2 2 Scale (0,1,2,3,4,d) Circulatory - Left Pulses Dorsalis Pedis Femoral 2 2 Scale (0,1,2,3,4,d) Neurological State Oriented to time-place- Alert Moves all extremities person Respiration - General Respiration Rate SpO2 (%) O2 (lpm) (B/min) 17 97 0 Chronological Log Time Study Chronological Log 15:58:25 Patient arrived via Bed. 15:58:26 Patient Name, D.O.B, / Armband Verified By R.N. 15:58:26 Consent signed by the physician and the patient and verified by the Supervisor Nurse staff. 15:58:27 Pre-op and post- op instructions given; patient acknowledges understanding of instructions. 15:58:28 Verbal Stimulation=2 Physical Stimulation=2 Airway=2 Respiration=2 TOTAL=8. (0=absent, 1=li mited, 2=present) 15:58:38 Presedation assessment performed by Supervisor Nurse RN. 15:58:49 Patient has been NPO for Less than 6Hrs. 15:58:50 Skin Breakdown- none per patient. 15:59:03 Patient Warmer Placed on the Table. 15:59:06 Markel Prominences Protected 15:59:08 A # 20 IV was noted in the Forearm (left). Grade = 0 Patient arrived on IV Solutions in Left Forearm via Peripheral IV. Pump/Drip Flow = 20 ml/hr us ing NaCl .9. Ordered by 15:59:28 Nikolas Hagan. Assessment: Initial Case, HR=75 BPM, Rhythm=Sinus, ACHN=497/96 mmhg, Chest Pain=0, Edema=None, Color=Normal, Skin = Warm, Dry Right Pulses: Ismael Ped=2, Femoral=2 16:06:11 Left Pulses: Ismael Ped=2, Femoral=2 Neurological: State=Alert, Ox3, GARDUNO Respiration: Resp=17 B/min, SpO2=97 %, O2=0 lpm Vitals capture started with the following parameters, Patient=Adult, Interval=5 min, Initial Pr slobwt=261 mmHg, 16:06:23 Deflation Rate=5 mmHg 16:06:58 HR=73 bpm, KBSZ=264/96 mmhg, SpO2=98.0 %, Resp=10 B/min, Foreign=10 16:11:24 Bilateral groins prepped with 2% chlorhexidine, and with a 3 min. waiting time. 16:12:44 HR=74 bpm, PLET=494/92 mmhg, SpO2=97.0 %, Resp=13 B/min, Foreign=10 16:14:42 Pressure channel 1 zeroed. 16:15:11 MD paged 16:17:04 HR=72 bpm, EVSB=517/86 mmhg, SpO2=97.0 %, Resp=11 B/min, Foreign=10 16:22:03 HR=72 bpm, IEUT=042/86 mmhg, SpO2=95.0 %, Resp=16 B/min, Pain=0, Foreign=10, Oquendo=2 16:27:00 HR=72 bpm, QMBM=753/88 mmhg, SpO2=96.0 %, Resp=12 B/min, Pain=0, Foreign=10, Oquendo=2 16:28:04 MD arrived. 16:28:14 Contrast Scanned 16::15 Immediate Presedation assesment performed by physician. 25 mg BENADRYL given in lab by Shazia Davis BSRN in Left Forearm via Peripheral IV. Ordere d by Danya, 16:30:14 Nikolas. 25 mg BENADRYL given in lab by Shazia Davis BSRN in Left Forearm via Peripheral IV. Ordere d by Danya, 16:31:48 Nikolas. Time Out. Correct patient, correct procedure,correct physician, ,power injector loaded with con trast with surgical team 16:31:50 present. Time Out Concurred by , individual staff in procedure 16:32:02 25 mcg FENTANYL given in lab by Drew Hunter, RN in Left Forearm via Peripheral IV. 16:32:03 HR=72 bpm, VUOW=407/87 mmhg, SpO2=96.0 %, Resp=11 B/min, Pain=0, Foreign=10, Oquendo=2 16:32:22 Case Start 16:32:22 Verbal Stimulation=2 Physical Stimulation=2 Airway=2 Respiration=2 TOTAL=8. (0=absent, 1=li mited, 2=present) 16:32:27 20 mL 1% XYLOCAINE given in lab by Nikolas Hagan in Right Groin via Subcutaneous. 16:33:46 1 mg VERSED given in lab by Drew Hunter, AILEEN in Left Forearm via Peripheral IV. 16:34:24 Reference ECG taken 16:34:48 Access site was Right Femoral Artery using ultrasound guidance 16:34:58 A SHEATH, FR5 TERUMO (10CM) FR 5 was advanced into the Fem Art (right) using the Percutaneo us technique. A PIGTAIL ANG. INFINITI CATHETER FR 5 was advanced over a wire. OMNIPAQUE, 350 MG, 150ML 150ML was used 16:35:05 for injections. Recorded Pressure: LV, HR=75, Condition=Condition 1 16:36:10 (Left Ventricle) LV 140/6/13 16:36:23 The LV was injected at 10 cc/sec for a total of 30. OMNIPAQUE, 350 MG, 50ML 50ML used. 16:37:12 HR=62 bpm, ANFL=227/59 mmhg, SpO2=92.0 %, Resp=14 B/min, Pain=0, Foreign=10, Oquendo=2 Recorded Pressure: LV, Ao, HR=77, Condition=Condition 1 16:37:46 (Left Ventricle) LV 140/6/16, (Aorta) Ao 140/75/103 16:38:07 Catheter was removed A JL 4.0 INFINITI CATHETER FR 5 was advanced over a wire. OMNIPAQUE, 350 MG, 150ML 150ML was us ed for 16:38:08 injections. Recorded Pressure: Ao, HR=74, Condition=Condition 1 16:38:56 (Aorta) Ao 152/77/109 16:39:01 The LCA was injected and visualized at various angles. OMNIPAQUE, 350 MG, 150ML 150ML used . 16:40:48 Catheter was removed A AR MOD INFINITI CATHETER FR 5 was advanced over a wire. OMNIPAQUE, 350 MG, 150ML 150ML was us ed for 16:40:49 injections. 16:42:03 The RCA was injected and visualized at various angles. OMNIPAQUE, 350 MG, 150ML 150ML used . 16:42:07 HR=79 bpm, EZHM=903/94 mmhg, SpO2=98.0 %, Resp=17 B/min, Pain=0, Foreign=10, Oquendo=2 16:42:33 Catheter was removed 16:42:51 Case End Assessment: Final Case, HR=78 BPM, Rhythm=Sinus, TBBU=492/94 mmhg, Chest Pain=0, Edema=None, Color=Normal, Skin = Warm, Dry Right Pulses: Ismael Ped=2, Femoral=2 16:42:57 Left Pulses: Ismael Ped=2, Femoral=2 Neurological: State=Alert, Ox3, GARDUNO Respiration: Resp=17 B/min, SpO2=97 %, O2=0 lpm 16:43:32 Catheter(s) removed without difficulty 16:44:19 Sheath(s) left in place, will be removed in Holding Area 16:44: Sterile dressing applied to site 16:: No case complications noted. 16:: Cine recording checked. 16:: Bedside Report will be given. 16:44:30 Contrast Scanned 16:44:31 Verbal Stimulation=2 Physical Stimulation=2 Airway=2 Respiration=2 TOTAL=8. (0=absent, 1=l imited, 2=present) 16:44:42 A Left Heart Cath was performed. 16:47:04 HR=77 bpm, RCLR=128/92 mmhg, SpO2=94.0 %, Resp=16 B/min, Pain=0, Foreign=10, Oquendo=2 16:49:33 Vitals capture stopped. 16:49:34 Patient moved to stretcher End Study - Contrast Media Used In Study Contrast Total Opened (mL) Total Used (mL) Total Wasted (mL) Omnipaque 100 100 0 End Study - Maximum Contrast Load Max Contrast Load (mL) 416.7 End Study - Radiation Exposure Fluoro Time (minutes) 1.2 End Study - Patient Disposition Complications Transferred To Interventional Outcome No Supervisor Nurse Holding No attempt made
[2017-04-08] MEDS ORDERED: IOHEXOL 350 MG/ML 100 ML BTL (for Cath Lab) OTHER ONE (17:11)
--- NOTE | 2017-04-08 17:30 | HHI.DCPOC ---
Discharge Care Plan Diagnosis: (1) Chest pain (2) Rheumatoid arthritis (3) Anxiety Your Health Problems Are: Chest Pain Shortness of Breath Goals to Promote Your Health * To prevent worsening of your condition and complications * To maintain your health at the optimal level Directions to Meet Your Goals Take your medications as prescribed Follow your dietary instruction Follow activity as directed Keep your appointments as scheduled Take your immunizations and boosters as scheduled If your symptoms worsen call your PCP, if no PCP go to Urgent Care Center or Emergency Room Smoking is Dangerous to Your Health. Avoid second hand smoke Call the 24-hour hour crisis hotline for domestic abuse at [facility]. [facility] Apr 08, 2017 17:30
--- NOTE | 2017-04-08 18:49 | MB ---
cc: DAISY SOLITARIO DATE OF CONSULTATION 04/08/2017 HISTORY A 56-year-old white female, patient of Dr. Martinez with abnormal exercise treadmill test in Dr. Martinez's office recently. Over the last several days she developed substernal chest pressure associated with shortness of breath, diaphoresis and fatigue. She presented to the emergency room. She still has episodes of chest pressure. PAST MEDICAL HISTORY Positive for: 1. Rheumatoid arthritis. 2. Sjogrens. 3. Gastroesophageal reflux disease. 4. Hiatal hernia. 5. Gastroparesis. 6. Palpitations. 7. Mild carotid stenosis. MEDICATIONS Include: 1. Prednisone. 2. Hydroxychloroquine. 3. Omeprazole. 4. Alprazolam. 5. Meclizine. 6. Tretinoin. 7. Vitamin D. 8. Centrum Silver. 9. Plaquenil. ALLERGIES PENICILLIN. CONTRAST MEDIA. PEANUTS. SOCIAL HISTORY Patient does not smoke. She does not drink alcohol. She is disabled secondary to rheumatoid arthritis. FAMILY HISTORY Positive for coronary artery disease in her mother and cerebrovascular accident in her sister. REVIEW OF SYSTEMS Otherwise negative. PHYSICAL EXAMINATION VITAL SIGNS: Blood pressure 163/72, pulse 18 and regular. HEENT: Negative. 2+ carotid upstrokes. No bruits. LUNGS: Clear. HEART: Regular with a 2/6 systolic murmur at the left sternal border. No gallops. ABDOMEN: Soft. No bruits. EXTREMITIES: Without edema. 2+ pulses. NEUROLOGIC: Grossly nonfocal. EKG was reviewed and showed normal sinus rhythm with normal axis and intervals. LABORATORY DATA Hemoglobin 13.1. Potassium 4.0, creatinine 0.9. Troponin negative x3. CK 107 and 98 and 82. AST and ALT normal. DIAGNOSES 1. Unstable angina. 2. Abnormal exercise treadmill test. 3. Rheumatoid arthritis. 4. Sjogrens. 5. Cardiovascular with mild carotid artery stenosis. DISPOSITION Ms. Jaramillo Will be scheduled for cardiac catheterization and coronary intervention it necessary today. The patient understands the risks and benefits and wishes to proceed. We will continue aggressive modification of her cardiac risk factors- she will follow up with Dr. Martinez, her primary hydro generation manager in his office after discharge. MD NIKA Valdivia/KK /3:57 PM /6:18 PM
[2017-04-08 21:42] LABS: HDL CHOLESTEROL 76.6 MG/DL (40.0-60.0)
--- NOTE | 2017-04-10 14:38 | MA ---
cc: DAISY SOLITARIO DATE: 04/08/2017 INDICATION Unstable angina, abnormal exercise treadmill nuclear stress test, this procedure is urgent. PROCEDURE PERFORMED 1. Retrograde left heart catheterization with left ventriculography and selective coronary angiography. 2. Moderate sedation. ACCESS SITE Right femoral artery. EQUIPMENT USED 5-[place] pigtail catheter, 5-[place] JL-4 and AR modified coronary artery catheter. MEDICATIONS Versed IV. Fentanyl IV. CONTRAST Omnipaque 100 ccs. COMPLICATIONS None. BLOOD LOSS Less than 10 ccs. METHOD OF HEMOSTASIS Manual compression. HEMODYNAMICS RESULTS Left end-diastolic pressure 60 mmHg. Left ventricle 140/6. Aorta 140/77/109. Left ventricular ejection fraction 65%. Wall motion normal. No mitral regurgitation. CORONARY ANGIOGRAPHY Left main coronary artery 20% ostial stenosis. Left anterior descending artery has 20% stenosis in the midportion, V1 patent, V2 patent. Left circumflex artery is patent. OM1 patent. OM2 patent. Right coronary artery is a dominant vessel with 10% stenosis in the proximal portion. PDA patent, PLV patent. DIAGNOSIS 1. Nonobstructive coronary artery disease. 2. Preserved left ventricular systolic function. DISPOSITION Ms. Jaramillo is assured about her cardiac status. No evidence of significant obstructive coronary artery disease and preserved left ventricular systolic function. She will be discharged home and will follow up with Dr. Martinez in his office after discharge. MD NIKA Valdivia/FARZANEHL /4:59 PM /2:23 PM
== END 2017-04-08 21:00 | disposition home or self-care (01) ==
LOC: NEPC 16:00 → NEDA 19:22 → NEPGCP 20:53 → HCIS 04-08 15:55
PROVIDERS: ADMIT Specialist; ATTEND Specialist
DX: R07.89 Other chest pain (principal); R06.02 Shortness of breath; R61 Generalized hyperhidrosis; R53.83 Other fatigue; R42 Dizziness and giddiness; R01.1 Cardiac murmur, unspecified; R94.39 Abnormal result of other cardiovascular function study; I65.29 Occlusion and stenosis of unspecified carotid artery; I25.110 Atherosclerotic heart disease of native coronary artery with unstable angina pectoris; M06.9 Rheumatoid arthritis, unspecified; K21.9 Gastro-esophageal reflux disease without esophagitis; M35.00 Sjogren syndrome, unspecified; F41.9 Anxiety disorder, unspecified; Z79.899 Other long term (current) drug therapy
CPT/HCPCS: 71010; 76937; 80053; 80061; 82550; 82552; 83735; 84484; 85025; 85610; 85730; 93005; 93458; 99285; C1769; C1893; G0378; J1200; J1644; J2250; J2930; J3010; J7030; Q9967